=== PATIENT | male | born 1955 | race Caucasian/White ===

== ENCOUNTER 2018-03-15 06:56 | Day surgery (SDC) | payer BC ==
[~2018-03-15 06:56] MED LIST: Albuterol 0.083% 2.5 MG/3 ML Neb Soln NEB SCH; Lactated Ringers 1,000 ML IV SCH; Lidocaine 1%/Sod Bicarbonate in NS 8.4% 1 ML Syringe IDERM PRN; Sodium Chloride 0.9% 10 ML Syringe FLUSH PRN
[2018-03-15] MEDS ORDERED: ceFAZolin 1 GM Vial ONE (07:23)
[2018-03-15] MEDS ORDERED: Lidocaine 1% 4 ML ONE (07:23)
[2018-03-15] MEDS ORDERED: Midazolam 1 MG/ML 2 ML SDV ONE (07:23)
[2018-03-15] MEDS ORDERED: fentaNYL 250 MCG/5 ML SDV ONE (07:23)
[2018-03-15] MEDS ORDERED: Rocuronium 50 MG/5 ML Vial ONE (07:23)
[2018-03-15] MEDS ORDERED: Ondansetron 4 MG/2 ML SDV ONE (07:23)
[2018-03-15] MEDS ORDERED: Dexamethasone 4 MG/ML SDV ONE ×2 (07:23→08:39)
[2018-03-15] MEDS ORDERED: Lactated Ringers 1,000 ML ONE ×2 (07:23→09:53)
[2018-03-15] MEDS ORDERED: Propofol 200 MG/20 ML SDV ONE (07:23)
[2018-03-15] MEDS ORDERED: Ketorolac 30 MG/ML SDV ONE (07:24)
[2018-03-15] MEDS ORDERED: Albuterol 0.083% 2.5 MG/3 ML Neb Soln ONE (07:25)
[2018-03-15] MEDS ORDERED: Sodium Chloride 0.9% 10 ML Syringe FLUSH PRN (07:26)
[2018-03-15] MEDS ORDERED: Lidocaine 1%/Sod Bicarbonate in NS 8.4% 1 ML Syringe IDERM PRN (07:26)
[2018-03-15] MEDS ORDERED: Lactated Ringers 1,000 ML IV SCH (07:30)
[2018-03-15] MEDS ORDERED: Albuterol 0.083% 2.5 MG/3 ML Neb Soln NEB SCH (07:35)
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
[2018-03-15] MEDS: Bupivacaine 0.5% 30 ML SDV ONE ×2 (08:50→09:47)
[2018-03-15] MEDS: Lidocaine 1% 50 ML MDV ONE ×2 (08:50→09:47)
[2018-03-15] MEDS ORDERED: Phenylephrine/Normal Saline 100 MCG/ML 10 ML Syringe ONE (08:55)
[2018-03-15] MEDS ORDERED: Haloperidol Lactate 5 MG/ML SDV IVPUSH PRN (09:02)
[2018-03-15] MEDS ORDERED: fentaNYL 100 MCG/2 ML SDV IVPUSH PRN (09:02)
[2018-03-15] MEDS ORDERED: HYDROmorphone 0.5 MG/0.5 ML Syringe IVPUSH PRN (09:02)
[2018-03-15] MEDS ORDERED: diphenhydrAMINE 50 MG/ML SDV IVPUSH PRN (09:02)
--- NOTE | 2018-03-15 10:09 | PCM.OPNOTE ---
- General Post-Op/Procedure Note Date of Surgery/Procedure: 03/15/18 Operative Procedure(s): ventral hernia repair with mesh open Pre Op Diagnosis: umbilical hernia Post-Op Diagnosis: ventral hernia Primary Surgeon: Nakul Rothman EBEstefani in mLs: 20 Complications: None Condition: Good
--- NOTE | 2018-03-15 10:23 | PCM.POSTAN ---
POST ANESTHESIA ASSESSMENT - MENTAL STATUS Mental Status: Alert, Oriented - VITAL SIGNS Pulse Rate: 73 SaO2: 99 Resp Rate: 20 Blood Pressure: 154/79 - RESPIRATORY Respiratory Status: Respiratory Rate WNL, Airway Patent, O2 Saturation Stable - CARDIOVASCULAR CV Status: Pulse Rate WNL, Blood Pressure Stable - GASTROINTESTINAL GI Status: No Symptoms - PAIN Pain Score: 0 - POST OP HYDRATION Hydration Status: Adequate & Stable
[2018-03-15] MEDS ORDERED: Acetaminophen/HYDROcodone 325-5 MG Tab PO PRN (11:12)
[2018-03-15] MEDS ORDERED: Metoclopramide 10 MG/2 ML SDV IVPUSH PRN (11:40)
[2018-03-15 12:11] VITALS: BP 124/76
--- NOTE | 2018-03-15 15:12 | OR ---
DATE OF OPERATION: 03/15/2018 SURGEON: Nakul Rothman MD PREOPERATIVE DIAGNOSIS: Umbilical hernia. POSTOPERATIVE DIAGNOSIS: Ventral hernia. OPERATION PERFORMED: Repair with mesh. ANESTHESIA: Done under general anesthetic. ESTIMATED BLOOD LOSS: About 20 mL. FINDINGS: Ventral hernia measuring 2 cm across. DESCRIPTION OF PROCEDURE: The patient was taken to the operating room, placed in a supine position, given a general anesthetic, and intubated. Antibiotics were given. The abdomen was then clipped and prepped with chlorhexidine and alcohol prep, draped off in a sterile fashion. An incision was made in the previous vertical incision, carried down by sharp dissection to the hernia, which was above the umbilicus and thus a ventral hernia. The defect contained omentum. The adhesions of the omentum around the hernia sac were loosened and the omentum was reduced. Using the knife, the peritoneum was dissected off the edge of the hernia and a dissection was then made in the preperitoneal space to about 3 cm on either side for placement of the mesh. Once the peritoneum was mobilized, it was then suture closed with a running 3-0 Vicryl suture. The mesh was then fashioned from the Ventralight ST mesh. It measured actually 4.5 x 11.4 cm. This was trimmed to fit and then the 4-quadrant sutures were placed of 0 Ethibond in the right, left, and superior quadrant. These were tied and the mesh was then brought into the preperitoneal space. The lower end of the mesh was trimmed and then sutured to the fascia in the preperitoneal space with further applications of 0 Ethibond. The quadrant sutures were then placed off the quadrant sutures to finish securing the mesh in the preperitoneal space. The edge of the fascia was then sutured to the mesh using a running 2-0 Vicryl suture, which was then tied to itself. Subcuticular tissue was then brought together with interrupted 3-0 Vicryl suture over this area and then the skin was closed with subdermal 4-0 Dexon suture. Steri-Strips and sterile dressing placed, and local anesthetic of 0.5% Marcaine and 1% Xylocaine was infiltrated in the skin. This completed the procedure. Throughout, hemostasis was maintained with electrocautery. The patient tolerated the procedure and sent to recovery room in a stable condition. MMODAL /[id number]
--- NOTE | 2018-03-16 09:19 | PCM48HPAN ---
Post Anesthesia Note - EVALUATION WITHIN 48HRS OF ANESTHETIC Vital Signs in Normal Range: Yes Patient Participated in Evaluation: Yes Respiratory Function Stable: Yes Airway Patent: Yes Cardiovascular Function Stable: Yes Hydration Status Stable: Yes Pain Control Satisfactory: Yes Nausea and Vomiting Control Satisfactory: Yes Mental Status Recovered: Yes
== END 2018-03-15 12:49 | disposition home or self-care (01) ==
LOC: JD.SDS 06:56
PROVIDERS: ATTEND Surgery
DX: K43.9 Ventral hernia without obstruction or gangrene (principal); J44.9 Chronic obstructive pulmonary disease, unspecified; I10 Essential (primary) hypertension; E03.9 Hypothyroidism, unspecified; E78.2 Mixed hyperlipidemia; G47.33 Obstructive sleep apnea (adult) (pediatric); Z99.89 Dependence on other enabling machines and devices; M17.0 Bilateral primary osteoarthritis of knee; C61 Malignant neoplasm of prostate; Z79.899 Other long term (current) drug therapy; Z98.890 Other specified postprocedural states; Z87.891 Personal history of nicotine dependence; Z88.8 Allergy status to other drugs, medicaments and biological substances
CPT/HCPCS: 36415; 80048; 93005; 94640; A9270-GY; C1781; J0690; J1100; J1885; J2001; J2250; J2370; J2405; J2704; J2765; J3010; J3490; J7120